=== PATIENT | male | born 1945 | race Caucasian/White ===

== ENCOUNTER → 2018-12-19 06:32 | Outpatient (CLI) | payer MEDICARE, SELFPAY ==
--- NOTE | 2018-12-19 06:34 | NM_ITS ---
History and Indications: Diabetes, family history, chest pain, shortness of breath, palpitations and fatigue Procedure: Patient received a 0.4 mg of intravenous Lexiscan resting heart rate was 67 bpm resting blood pressure 114/68, with Lexiscan maximum heart rate achieved was 88 bpm which is less than 85% of the maximum predicted heart rate and a blood pressure was 128/66 with exercise patient, shortness of breath and nausea requiring intravenous Aminophyllin to reverse symptoms. Electrocardiogram: Resting electrocardiogram showed sinus rhythm, with Lexiscan there is less than 1.[address] segment depression noted from the baseline EKG. The EKG portion of the Lexiscan Myoview is nondiagnostic Cardiac stress and resting SPECT images: Cardiac stress and resting SPECT images were obtained using technetium 99 Myoview 31.3 mCi stress and 10.4 mCi at rest. Gated SPECT further analysis of segmental wall motion and calculation of the ejection fraction also done. Cardiac stress and resting SPECT images show uniform myocardial activity without segmental perfusion abnormality, computer derived ejection fraction is over 65% with no regional wall motion abnormality, right ventricle is normal size and contractility. Conclusion: 1. The EKG portion of the Lexiscan Myoview is nondiagnostic. 2. No scintigraphic evidence of reversible ischemia seen, computer derived ejection fraction is over 65% with no regional wall motion abnormality, right ventricle is normal size and contractility. 3. Normal Lexiscan Myoview study.
--- NOTE | 2018-12-19 06:34 | CA_ITS ---
PROCEDURE: 2-D M-mode and color Doppler study INDICATIONS FOR THE TEST: Chest pain+ COPD+ Heart Murmur Tobacco SmokingEX Palpitations Fatigue Syncope Edema+ Hypertension+Diabetes Mellitus+ Rheumatic Fever SOB MARTIN+Obesity Hyperlipidemia+ Family History HD Additional History CAD, stents PATIENT INFORMATION HEIGHT: 70 WEIGHT: 156 GENDER: Male B/P: 134/64 2-D/M-MODE INTERPRETATION: 2-D MEASUREMENTS OBSERVED VALUES IN CMS Right Ventricular Dimension (RVDd) 2.0 Interventricular Septum (Thickness)(IVsd) 1.0 Left Ventricular Internal Dimensions(LVIDd) 2.5 Left Ventricular Posterior Wall (Thickness)(LVPWd) 1.0 Aortic Root 2.7 Aortic Cusp Separation 2.2 Left Atrial Dimensions (LAD) 3.4 2D 1. Left atrium is mildly enlarged, left ventricle is normal size, mild concentric left ventricular hypertrophy, visually fraction 55% with no regional wall motion abnormality. 2. The right atrium and right ventricle are normal size and contractility. 3. The aortic valve is minimally thickened and fibrosed. 4. The mitral and tricuspid valve leaflets are minimally thickened. 5. The pulmonic valve is poorly visualized. 6. No significant pericardial effusion noted. DOPPLER INTERROGATION: Doppler interrogation of the aortic, mitral and tricuspid valvular presence of mild mitral and tricuspid regurgitation, tricuspid regurgitation jet velocity is inadequate for calculation of the right ventricular systolic pressure, grade 1 diastolic dysfunction seen with tissue Doppler evidence of raised left atrial pressure. CONCLUSION: 1. Mildly enlarged left atrium, normal left ventricular size, mild concentric left ventricular hypertrophy, visually estimated ejection fraction 55% with no regional wall motion abnormality, progressive dysfunction seen with tissue Doppler evidence of raised left atrial pressure. 2. Mild mitral and tricuspid regurgitation 3. No significant pericardial effusion noted.
[2018-12-19 11:51] LABS: Alanine Aminotransferase 18 U/L (12-78); Albumin Level 3.5 gm/dL (3.4-5.0); Alkaline Phosphatase 67 U/L (46-116); Aspartate Amino Transferase 12 U/L (15-37); Bilirubin,Direct 0.1 mg/dL (0.0-0.2); Bilirubin,Indirect 0.5 mg/dL (0.0-0.9); Bilirubin,Total 0.6 mg/dL (0.2-1.0); Chol/HDL Ratio 3.5 (1-3.5); Cholesterol 184 mg/dL (140-200); HDL Cholesterol 53 mg/dL (27-67); LDL Cholesterol 117 mg/dL (0-130); Total Protein,Serum 6.7 gm/dL (6.4-8.2); Triglycerides 68 mg/dL (30-200); VLDL Cholesterol 14 mg/dL (0-40)
== END ==
PROVIDERS: PCP Family Medicine; Visit Provider Urology
DX: E11.9 Type 2 diabetes mellitus without complications (principal); I11.9 Hypertensive heart disease without heart failure; I25.118 Atherosclerotic heart disease of native coronary artery with other forms of angina pectoris; R06.09 Other forms of dyspnea; R60.9 Edema, unspecified; E78.49 Other hyperlipidemia; Z87.891 Personal history of nicotine dependence; Z79.4 Long term (current) use of insulin
CPT/HCPCS: 36415; 78452; 80061; 80076; 93017; 93306; A9502; J2785

== ENCOUNTER → 2018-12-19 10:00 | Outpatient (CLI) | payer MEDICARE, SELFPAY | PROVIDERS: Visit Provider Urology | DX: E78.49 Other hyperlipidemia (principal) | CPT/HCPCS: 36415; 80061; 80076 ==

== ENCOUNTER → 2020-05-14 12:13 | Outpatient (CLI) | payer MEDICARE, SELFPAY ==
[2020-05-14 12:36] LABS: Blood Urea Nitrogen 35 mg/dl (9-20); Estimated Glomerular Filt Rate 31 ml/min (>60); GFR (African American) 37 ML/MIN (>60)
== END ==
LOC: LAB 12:13 → RAD 13:05
PROVIDERS: PCP Family Medicine; Visit Provider Internal Medicine Cardiovascular Disease
DX: I99.8 Other disorder of circulatory system (principal); L97.519 Non-pressure chronic ulcer of other part of right foot with unspecified severity; M79.671 Pain in right foot
CPT/HCPCS: 36415; 82565; 84520

== ENCOUNTER → 2020-05-17 10:10 | Outpatient (CLI) | payer MEDICARE, SELFPAY ==
--- NOTE | 2020-05-17 10:48 | CT_ITS ---
Procedure: CT ANGIO LE BI CLINICAL HISTORY: leg pain COMPARISON: No exams were available for comparison TECHNIQUE: IV Contrast: 100ml Optiray 350 Axial images obtained with sagittal and coronal reformats. All CT scans at the facility use one or more dose reduction, viz: automated exposure control, ma/kV adjustment per patient size (including targeted exams where dose is matched to indication, i.e. head), or iterative reconstruction technique. FINDINGS: Abdominal aorta: Mild atheromatous changes are present with some calcific plaque. No aneurysm or stenosis. No iliac stenosis. The SMA and celiac artery have an unremarkable appearance. There is a single renal artery to each kidney with mild atheromatous plaque at the ostium of the left renal artery with approximately 30 percent stenosis. The right renal artery has an unremarkable appearance. Bilateral lower extremity runoff: Minimal atheromatous changes of the distal SFA. No significant stenosis. The SFA and popliteal have an unremarkable appearance. The the popliteal artery gives rise to a prominent peroneal branch and a small anterior tib and posterior tibial artery on both sides with a prominent collateral branch to the distal posterior tib on the right. The posterior tibial artery on the left is smaller than on the right side. The small area of plaque is present at the proximal aspect of the prominent peroneal artery with no significant stenosis. The pertinent non emergent There is a right lower quadrant ileostomy. There has been prior colectomy. There is a right inguinal hernia which contains small bowel without evidence of obstruction. IMPRESSION: 1. No significant stenotic lesions evident. Mild atheromatous changes are noted. 2. Posterior tibial arteries are small on both sides. This is more severe on the left compared to the right. Prominent collateral vessel is noted just above the ankle on both sides helping to supply the posterior tibial at and below the ankle. 3. Prior colectomy with right lower quadrant ileostomy. 4. Right inguinal hernia containing small bowel without obstruction 5. Dictated by: Pierce Cordova MD 05/18/2020 11:38 Electronically signed by Pierce Cordova MD in [facility] 05/18/2020 11:38
[2020-05-17 10:59] LABS: Blood Urea Nitrogen 34 mg/dl (9-20); Estimated Glomerular Filt Rate 49 ml/min (>60); GFR (African American) 60 ML/MIN (>60)
== END ==
LOC: LAB 10:11 → RAD 10:44
PROVIDERS: PCP Family Medicine; Visit Provider Internal Medicine Cardiovascular Disease
DX: I99.8 Other disorder of circulatory system (principal); L97.519 Non-pressure chronic ulcer of other part of right foot with unspecified severity; M79.671 Pain in right foot
CPT/HCPCS: 36415; 73701; 82565; 84520; Q9967

== ENCOUNTER 2020-05-25 09:08 | Day surgery (SDC) | payer MEDICARE, SELFPAY ==
[2020-05-25] VITALS (12 sets, daily range): BP systolic 114–155; BP diastolic 61–79; PULSE 57–71; RESP 15–18; TEMP 36.8; O2SAT 93–100; BMI 21.1
--- NOTE | 2020-05-25 10:30 | IR_ITS ---
APPROVED REPORT Patient Location: Outpatient PROCEDURES Catheter placement in the right common femoral artery Right common femoral artery antegrade angiogram with unilateral runoff to the right foot Catheter placement in the right common iliac artery Right common iliac artery antegrade angiogram INDICATION Kaleigh class IV claudication Informed consent was obtained prior to the procedure. COMPLICATIONS none Estimated Blood Loss: less than 10 mls TECHNIQUE 1% lidocaine used to anesthetize the left femoral groin. Left femoral artery was accessed via the Salinger technique and a 5 Cameroonian sheath was placed in the left femoral artery. A rim catheter was then advanced under fluoroscopic guidance to the right common femoral artery where angiography with unilateral runoff to the right foot was performed. The catheter was pulled back to the right common iliac artery and right common iliac artery antegrade angiogram was performed. At the end the procedure the apparatus was removed the patient was transferred to the postop holding area in stable condition for sheath removal ANGIOGRAPHIC RESULTS The right common internal and external arteries are normal. The right common femoral arteries normal. The right profunda femoris artery is normal. The right superficial femoral artery is widely patent and normal. The right popliteal artery is normal. There is three-vessel runoff below the foot on the right side IMPRESSION Normal right iliofemoral runoff into the foot PLAN 1. Evaluation of non-arterial etiologies for lower extremity ulcers Electronically signed by : Fracisco Rodriguez, 05/25/2020 12:36:06
[2020-05-25 10:36] LABS: Basophils # 0.1 K/mm3 (0-0.2); Basophils % 0.8 % (0.1-2.0); Eosinophils # 0.3 K/mm3 (0.0-0.4); Eosinophils % 2.8 % (0.1-12.0); Hematocrit 40.3 % (42.0-52.0); Hemoglobin 12.8 g/dL (14.1-18.0); Lymphocytes # 1.8 K/mm3 (0.7-4.5); Lymphocytes % 17.8 % (10-50); Mean Corpuscular HGB Conc 31.9 g/dL (31.8-35.4); Mean Corpuscular Hemoglobin 31.7 pg (27.0-31.2); Mean Corpuscular Volume 99.6 fl (80-94); Mean Platelet Volume 8.4 fl (7.4-10.4); Monocytes # 0.4 K/mm3 (0.1-1.0); Monocytes % 4.3 % (1.7-9.3); Neutrophils # 7.4 K/mm3 (1.8-7.8); Neutrophils % 74.4 % (37.0-80.0); Platelet Count 244 K/mm3 (142-424); Red Blood Count 4.04 M/mm3 (4.60-6.20); Red Cell Distribution Width 14.3 % (11.5-17.5); White Blood Count 9.9 K/mm3 (4.8-10.8)
[2020-05-25 10:41] LABS: Anion Gap 15.5 mEq/L (5-15); Blood Urea Nitrogen 39 mg/dl (9-20); Calcium 9.2 mg/dl (8.4-10.2); Carbon Dioxide 20 mmol/L (22.0-30.0); Chloride 111 mmol/L (98-107); Creatinine Clearance Estimated 40 mL/min (50-200); Estimated Glomerular Filt Rate 46 ml/min (>60); GFR (African American) 55 ML/MIN (>60); Glucose 110 mg/dl (74-100); Potassium 4.5 mmoL/L (3.5-5.1); Sodium 142 mmol/L (136-145)
== END 2020-05-25 15:15 | disposition home or self-care (01) ==
LOC: CATHLAB 09:10
PROVIDERS: PCP Family Medicine; Visit Provider Internal Medicine
DX: I70.223 Atherosclerosis of native arteries of extremities with rest pain, bilateral legs; I25.10 Atherosclerotic heart disease of native coronary artery without angina pectoris; E11.59 Type 2 diabetes mellitus with other circulatory complications; I12.9 Hypertensive chronic kidney disease with stage 1 through stage 4 chronic kidney disease, or unspecified chronic kidney disease; K21.9 Gastro-esophageal reflux disease without esophagitis; L97.519 Non-pressure chronic ulcer of other part of right foot with unspecified severity; L97.919 Non-pressure chronic ulcer of unspecified part of right lower leg with unspecified severity; L97.929 Non-pressure chronic ulcer of unspecified part of left lower leg with unspecified severity; N18.2 Chronic kidney disease, stage 2 (mild); R60.0 Localized edema; I77.1 Stricture of artery
CPT/HCPCS: 36247; 75710; 80048; 85025; 99152; C1725; C1769; C1894; J1644; Q9966